=== PATIENT | female | born 1990 | race Asian ===

== ENCOUNTER 2020-12-04 14:03 | Emergency (ER) | payer OTHER ==
[~2020-12-04] VITALS: Ht 167.6 cm; Wt 55.0 kg
[2020-12-04 16:29] VITALS: BP 113/76
== END 2020-12-04 16:30 | disposition home or self-care (01) ==
LOC: ER 14:03
DX: S90.31XA Contusion of right foot, initial encounter (principal); W22.8XXA Striking against or struck by other objects, initial encounter; Y93.89 Activity, other specified; Y92.89 Other specified places as the place of occurrence of the external cause
CPT/HCPCS: 73630; 81025; 99283